=== PATIENT | female | born 1955 | race Caucasian/White ===

== ENCOUNTER 2016-04-24 21:21 | Emergency (ER) | payer OTHER ==
[~2016-04-24] VITALS: Ht 147.3 cm; Wt 76.7 kg
[~2016-04-24 21:21] MED LIST: ASPIRIN325 MG PO; BENTYL10 MG PO; Bactrim,Septra DS 80 PO; CALTRATE-600 W1 EAC1 PO; ELAVIL10 MG PO; FLEXERIL10 MG PO; FOLIC ACID1 MG PO; HUMULIN N300 UNIT/3 SC; IRON325 M1 PO; KLOR-CON M2020 MEQ PO; LEVOTHYROXINE50 MCG PO; LISINOPRIL20 MG PO; LYRICA75 MG PO; METHOTREXATE2.5 MG PO; MEVACOR40 MG PO; NORVASC5 MG PO; NOVOLIN N100 UNITS/ SC; PREDNISONE5 MG PO; PRILOSEC40 MG PO; TYLENOL ARTHRI650 M2 PO
[2016-04-24 22:04] LABS: HEMATOCRIT 34.7 % (36.0-46.0); MCH 23.4 PG (29.0-34.0); MCV 78.2 FL (83-99); MEAN PLAT.VOLUME 10.5 uM^3 (9.5-12.4); PLATELET COUNT 263 K/uL (156-360); RBC DIS.WIDTH-CV 17.8 % (11.8-14.6); RBC DIS.WIDTH-SD 49.1 % (39-53); RED BLOOD COUNT 4.44 M/uL (3.80-5.20)
[2016-04-24 22:16] LABS: CHLORIDE 103 mEq/L (99-109); POTASSIUM 4.7 mEq/L (3.7-5.4); SODIUM 138 mEq/L (136-147)
[2016-04-24 22:19] LABS: GLUCOSE 80 mg/dL (70-99)
[2016-04-24 22:20] LABS: ANION GAP 15 MEQ/L (2-14)
[2016-04-24 22:21] LABS: TOTAL BILIRUBIN 0.5 mg/dL (0.0-1.0)
[2016-04-24 22:22] LABS: ALKALINE PHOSPHATASE 40 IU/L (3-129)
[2016-04-24 22:23] LABS: GFR ESTIMATE (CALCULATED) 44 mL/min/
[2016-04-24 22:24] LABS: UREA NITROGEN (BUN) 21 mg/dL (9-23)
[2016-04-24 22:26] LABS: LIPASE 23 U/L (1.0-51.0)
[2016-04-25] MEDS ORDERED: ZOFRAN ODT4 MG PO (02:05)
[2016-04-25 02:43] VITALS: BP 121/66
== END 2016-04-25 02:45 | disposition home or self-care (01) ==
LOC: EME 21:21
PROVIDERS: Emergency Medicine
DX: K52.9 Noninfective gastroenteritis and colitis, unspecified (principal); R11.2 Nausea with vomiting, unspecified
CPT/HCPCS: 71020; 74176; 80053; 81003; 83690; 85027; 99281; 99285; J2405; J7030